=== PATIENT | female | born 1995 | race Caucasian/White ===

== ENCOUNTER 2019-05-18 21:29 | Emergency (ER) | payer OTHER ==
[2019-05-18 21:35] VITALS: BMI 32.8
--- NOTE | 2019-05-18 21:52 | PDOC ---
History of Present Illness - General Chief Complaint: Nausea/Vomiting Stated Complaint: 7 W PREG/VOMITING/DIZZINESS Time Seen by Provider: 05/18/19 21:51 History Source: Patient Exam Limitations: No Limitations - History of Present Illness Initial Comments: 05/18/19 22:10 Jia Roman is a 24y 7wk pt presenting w nausea/ vomiting. Started nausea/vomiting 7d, only able to keep soft foods/fluids down. Did not take any meds. No other complications w . Has intermittent headaches, SOB since beginning of . Denies fever, headache, chest/AB pain, urinary/bowel movement changes, vaginal bleeding. Past History - Past Medical History Allergies/Adverse Reactions: Allergies Allergy/AdvReac Type Severity Reaction Status Date / Time No Known Drug Allergies Allergy Verified 05/18/19 21:32 shellfish derived Allergy Swelling Verified 05/18/19 21:32 seafood Allergy Severe Swelling Uncoded 05/18/19 21:32 Home Medications: Ambulatory Orders Ferrous Sulfate [Feosol] 325 mg PO DAILY 12/06/14 Mv-Mn/Iron/FA/Herbal/Digestive [ One Tablet] 1 tab PO DAILY 12/06/14 Acetaminophen [Tylenol .Regular Strength -] 650 mg PO Q3H PRN #0 tablet Benzocaine [Americaine 20% [place] -] 1 spray TP PRN PRN #1 spraybtl 12/08/14 Ferrous Sulfate [Feosol] 325 mg PO BIDWM #60 ud 12/08/14 Ibuprofen [Motrin -] 200 mg PO Q4H PRN #20 tablet 12/08/14 Vitamins (Sjr) - 1 tab PO DAILY #30 tablet 12/08/14 Witch Molly 50% (Tucks) [Tucks Pads -] 1 pad TP PRN PRN #1 pad 12/08/14 Anemia: Yes Asthma: No Cancer: No Cardiac Disorders: No COPD: No Diabetes: No HTN: No Seizures: No Thyroid Disease: No - Psycho Social/Smoking Cessation Hx Smoking Status: No Smoking History: Never smoked Have you smoked in the past 12 months: No Number of Cigarettes Smoked Daily: 0 Hx Alcohol Use: No Drug/Substance Use Hx: No Hx Substance Use Treatment: No Review of Systems - Review of Systems Able to Perform ROS?: Yes Constitutional: No: Chills, Fever HEENTM: No: Eye Pain, Nose Pain, Throat Pain, Mouth Pain Respiratory: No: Cough, Shortness of Breath Cardiac (ROS): No: Chest Pain, Palpitations, Syncope ABD/GI: Yes: Nausea, Vomiting. No: Abdominal Distended, Constipated, Diarrhea : No: Burning, Dysuria, Discharge, Flank Pain, Hematuria Musculoskeletal: No: Back Pain, Joint Pain, Muscle Pain Integumentary: No: Bruising, Flushing, Lesions Neurological: No: Seizure, Tingling, Tremors Psychiatric: No: Anxiety, Depression, Stressors Endocrine: No: Excessive Sweating, Flushing, Intolerance to Cold, Intolerance to Heat Hematologic/Lymphatic: No: Anemia, Blood Clots *Physical Exam - Vital Signs Last Vital Signs Temp Pulse Resp BP Pulse Ox 98.5 F 93 H 18 133/87 98 05/18/19 21:32 05/18/19 21:32 05/18/19 21:32 05/18/19 21:32 05/18/19 21:32 - Physical Exam General Appearance: Yes: Nourished, Appropriately Dressed. No: Apparent Distress HEENT: positive: EOMI, LAST, Normal Voice, Hearing Grossly Normal. negative: Scleral Icterus (R), Scleral Icterus (L), Nasal Congestion, Rhinorrhea Respiratory/Chest: positive: Lungs Clear, Normal Breath Sounds. negative: Chest Tender, Respiratory Distress Cardiovascular: positive: Regular Rhythm, S1, S2, Tachycardia. negative: Edema , Murmur Extremity: positive: Delayed Capillary Refill (3s) Integumentary: positive: Normal Color Neurologic: positive: Fully Oriented, Alert, Normal Response, Responsive. negative: Sensory Deficit, Confused, Disoriented ED Treatment Course - LABORATORY CBC & Chemistry Diagram: 05/18/19 22:20 05/18/19 22:20 Medical Decision Making - Medical Decision Making 05/18/19 22:13 CBC CMP Mg Phos Ua HCG 1L NS for dehydration, pyridoxine for nausea CBC, CMP normal, +HCG --- Jia Roman is a 24y 7wk pt presenting w nausea/ vomiting d/t hyperemesis gravidarium. Given 1L NS for dehydration, pyridoxine for nausea. No electrolyte imbalances, confirmed . D/c home after PO challenge, OBGYN f/u appointment tmrw. Discharge - Discharge Information Problems reviewed: Yes Clinical Impression/Diagnosis: Hyperemesis gravidarum Condition: Good Disposition: HOME - Admission No - Follow up/Referral - Patient Discharge Instructions Patient Printed Discharge Instructions: DI for Hyperemesis Gravidarum Additional Instructions: You were seen for vomiting. Your labs did not show anything concerning. You were given fluids and medication for your vomiting. Please see your obgyn doctor at tomorrow's appointment. Do not eat any foods that will aggravate your nausea. Come back to the ED if you are vomiting blood, unable to keep any fluids down, or lose consciousness. - Post Discharge Activity
[2019-05-18] MEDS ORDERED: SODIUM CHLORIDE 0.9% 500 ML INFUS.BAG IV ONE (22:07)
[2019-05-18] MEDS ORDERED: PYRIDOXINE HCL (B-6) 100 MG TABLET PO ONE (22:20)
[2019-05-18 22:32] LABS: BASO % 1.1 % (0-2.0); EOS % 1.5 % (0-4.5); HEMATOCRIT 36.8 % (32.4-45.2); HEMOGLOBIN 12.3 GM/dL (10.7-15.3); LYMPH % 29.5 % (8-40); MCH 29.8 pg (25.7-33.7); MCHC 33.6 g/dl (32.0-36.0); MEAN CELL VOLUME 88.8 fl (80-96); MEAN PLT VOLUME 8.3 fl (7.5-11.1); MONO % 7.4 % (3.8-10.2); NEUT % 60.5 % (42.8-82.8); PLATELET COUNT 268 K/MM3 (134-434); RBC 4.14 M/mm3 (3.60-5.2); RDW 13.4 % (11.6-15.6); WHITE BLOOD COUNT 8.1 K/mm3 (4.0-10.0)
--- NOTE | 2019-05-18 22:38 | PDOC ---
Attending Attestation - Resident Resident Name: EdwinJorge - ED Attending Attestation I have performed the following: I have examined & evaluated the patient, The case was reviewed & discussed with the resident, I agree w/resident's findings & plan, Exceptions are as noted - HPI HPI: 05/18/19 22:37 This 24 yo female presents with nausea an vomiting for 1 week. HPI she states she is 7 weeks and is receiving principal cloud architect care - Physicial Exam PE: 05/19/19 01:05 Well-nourished well-developed 24-year-old female presents because she said persistent nausea and vomiting this week Head normocephalic atraumatic Neck supple Lungs are clear to auscultation bilaterally CVS regular rate and rhythm S1-S2 Abdomen nontender nondistended Skin warm and dry Neuro alert and oriented x3 and ambulatory - Medical Decision Making 05/18/19 22:39 24 yo female p/w hyperemesis plan Iv fluids 05/19/19 01:06 labs are essentially unremarkable pt has an appt with her principal cloud architect at [address] this week
[2019-05-18 22:56] LABS: PHOSPHOROUS 3.8 mg/dL (2.5-4.9)
[2019-05-18 23:29] LABS: ALBUMIN 3.9 g/dl (3.4-5.0); BILIRUBIN,TOTAL 0.2 mg/dL (0.2-1); BLOOD UREA NITROGEN 11.1 mg/dL (7-18); CALCIUM 8.9 mg/dL (8.5-10.1); CREATININE 0.6 mg/dL (0.55-1.3); POTASSIUM 4.1 mmol/L (3.5-5.1); TOT PROT 7.1 g/dl (6.4-8.2)
[2019-05-19 00:42] VITALS: BP 119/78; PULSE 86; TEMP 98.3
[2019-05-19 01:18] LABS: EPI CELLS 2.9 /HPF (0-5/HPF); HYALINE CASTS 1 /lpf (0-8); URINE APPEARANCE CLEAR; URINE BACTERIA 151.6 /hpf (NEGATIVE); URINE BILIRUBIN NEGATIVE (NEGATIVE); URINE COLOR YELLOW; URINE GLUCOSE (UA) NEGATIVE (NEGATIVE); URINE KETONE NEGATIVE (NEGATIVE); URINE LEUK ESTERASE 1+ (NEGATIVE); URINE NITRITE NEGATIVE (NEGATIVE); URINE PROTEIN NEGATIVE (NEGATIVE); URINE RBC 2 /hpf (0-4); URINE UROBILINOGEN 0.2 mg/dL (0.2-1.0); URINE WBC 4 /hpf (0-5)
== END 2019-05-19 01:21 | disposition home or self-care (01) ==
LOC: JER 21:29
DX: O26.891 Other specified pregnancy related conditions, first trimester (principal); O21.0 Mild hyperemesis gravidarum; Z3A.01 Less than 8 weeks gestation of pregnancy; D64.9 Anemia, unspecified; Z91.013 Allergy to seafood
CPT/HCPCS: 36415; 80053; 81003; 83735; 84100; 84703; 85025; 99283-25

== ENCOUNTER 2020-03-02 23:12 | Emergency (ER) | payer OTHER ==
[2020-03-02] MEDS ORDERED: FAMOTIDINE 20 MG/50 ML IVPB 20 MG/50 ML MG IVPB ONE ×2 (23:19→23:53)
--- NOTE | 2020-03-02 23:19 | PDOC ---
Rapid Medical Evaluation Chief Complaint: Pain Time Seen by Provider: 03/02/20 23:15 Medical Evaluation: Allergies Allergy/AdvReac Type Severity Reaction Status Date / Time No Known Drug Allergies Allergy Verified 01/08/20 01:53 shellfish derived Allergy Swelling Verified 01/08/20 01:53 seafood Allergy Severe Swelling Uncoded 01/08/20 01:53 03/02/20 23:15 24 year old female c/o epigastric abdominal pain one episode of vomiting today. had a baby 1 month ago. Last Vital Signs Temp Pulse Resp BP Pulse Ox 97.9 F 87 20 124/87 97 03/02/20 23:16 03/02/20 23:16 03/02/20 23:16 03/02/20 23:16 03/02/20 23:16 PE: patient alert ox3. A; epigastric abdominal pain P: labs abdominal US 03/02/20 23:20 Discharge Disposition - Diagnosis Epigastric abdominal pain - Referrals - Patient Instructions - Post Discharge Activity
[2020-03-02 23:20] VITALS: BMI 33.6
--- NOTE | 2020-03-02 23:20 | PDOC ---
History of Present Illness - General Chief Complaint: Pain Stated Complaint: G.I.UPSET Time Seen by Provider: 03/02/20 23:15 History Source: Patient - History of Present Illness Initial Comments: 03/02/20 23:46 24-year-old female complaining of epigastric and upper upper abdominal pain for the last 3 hours. Patient reports that she ate tuna fish sandwich earlier. Report one episode of vomiting. Denies fever/chills. Patient reports that she had a baby 1 month ago. No past medical history Past History - Medical History Allergies/Adverse Reactions: Allergies Allergy/AdvReac Type Severity Reaction Status Date / Time No Known Drug Allergies Allergy Verified 01/08/20 01:53 shellfish derived Allergy Swelling Verified 01/08/20 01:53 seafood Allergy Severe Swelling Uncoded 01/08/20 01:53 Home Medications: Ambulatory Orders Vitamins (Sjr) - 1 tab PO DAILY #30 tablet 12/08/14 Breast Pump 1 each MC 5XD 30 Days #1 each 01/10/20 Ferrous Sulfate [Feosol] 325 mg PO DAILY #30 tablet 01/10/20 Ibuprofen 600 mg PO Q6H PRN #30 tablet 01/10/20 Cephalexin Monohydrate [Keflex -] 500 mg PO BID #10 capsule 03/03/20 Famotidine [Pepcid -] 40 mg PO DAILY #10 tablet 03/03/20 Anemia: Yes Asthma: No Cancer: No Cardiac Disorders: No COPD: No Diabetes: No HTN: No Seizures: No Thyroid Disease: No - Immunization History Immunization Up to Date: No - Psycho-Social/Smoking History Smoking Status: No Smoking History: Never smoked Have you smoked in the past 12 months: No Number of Cigarettes Smoked Daily: 0 - Substance Abuse Hx (Audit-C & DAST Scrn) How often the patient has a drink containing alcohol: Never Score: In Men: 4 or > Positive; In Women: 3 or > Positive: 0 Screen Result (Pos requires Nsg. Audit-10AR): Negative Abd/GI Specific PMHX - Complaint Specific PMHX GI Ulcer Disease: No Review of Systems - Review of Systems Able to Perform ROS?: Yes Is the patient limited Croatian proficient: No Constitutional: No: Symptoms Reported, See HPI, Chills, Diaphoresis, Fever, Loss of Appetite, Malaise, Night Sweats, Weakness, Weight Stable, Unintentional Wgt. Loss, Unexplained wgt Loss, Other ABD/GI: Yes: Nausea, Vomiting, Abdominal cramping. No: Symptoms Reported, See HPI, Abdominal Distended, Abd. Pain w/ defecation, Blood Streaked Bowels, Constipated, Diarrhea, Difficulty Swallowing, Poor Appetite, Poor Fluid Intake, Rectal Bleeding, Indigestion, Tarry Stools, Other : No: Symptoms Reported, See HPI, Burning, Dysuria, Discharge, Frequency, Flank Pain, Hematuria, Incontinence, Pain, Urgency, Testicular Mass, Testicular Swelling, Lesions, Testicular Pain, Other *Physical Exam - Vital Signs Last Vital Signs Temp Pulse Resp BP Pulse Ox 97.9 F 87 20 124/87 97 03/02/20 23:16 03/02/20 23:16 03/02/20 23:16 03/02/20 23:16 03/02/20 23:16 - Physical Exam General Appearance: Yes: Appropriately Dressed Cardiovascular: positive: Regular Rhythm, Regular Rate Gastrointestinal/Abdominal: positive: Normal Bowel Sounds, Tender (RUQ/ epigastric) Musculoskeletal: negative: CVA Tenderness Extremity: positive: Normal Capillary Refill, Normal Inspection, Normal Range of Motion Integumentary: positive: Normal Color, Dry, Warm Neurologic: positive: resistance brazer II-XII NML intact, Fully Oriented, Alert ED Treatment Course - LABORATORY CBC & Chemistry Diagram: 03/03/20 00:10 03/03/20 00:10 - RADIOLOGY Radiology Studies Ordered: Category Date Time Status ABDOMEN US -LIMITED [US] Stat Ultrasound 03/02/20 23:18 Ordered ED Progress Note - Progress Note Progress Note: 03/03/20 02:56 A: cholelithiases; UTI; epigastric abdominal pain P: CBC CMP UA ABd US Medical Decision Making - Medical Decision Making 03/03/20 01:48 Abd US: Right upper quadrant pain:The liver is normal, without mass or biliary duct dilation. The gallbladder contains tiny stones without definite secondary findings of cholecystitis. The CBD is mildly dilated and measures7 millimeters in diameter. Right kidney measures 9.7centimeters in length and contains a 6 mm stone without hydronephrosis.. The visualized aorta and IVC are normal. Pancreas is partially obscured, but appears normal. Abdominal duplex: The main portal vein demonstrates normal hepatopedal flow. IMPRESSION: Tiny gallstones without definite secondary findings of cholecystitis. 03/03/20 02:48 UA + 1 leuks, bacteria. will empirically treat . patient is aware Discharge - Discharge Information Problems reviewed: Yes Clinical Impression/Diagnosis: Epigastric abdominal pain Cholelithiasis Qualifiers: Cholelithiasis location: gallbladder Cholecystitis presence: without cholecystitis Biliary obstruction: without biliary obstruction Qualified Code(s): K80.20 - Calculus of gallbladder without cholecystitis without obstruction UTI (urinary tract infection) Qualifiers: Urinary tract infection type: acute cystitis Hematuria presence: without hematuria Qualified Code(s): N30.00 - Acute cystitis without hematuria Condition: Improved Disposition: HOME - Additional Discharge Information Prescriptions: Cephalexin Monohydrate [Keflex -] 500 mg PO BID #10 capsule Famotidine [Pepcid -] 40 mg PO DAILY #10 tablet - Follow up/Referral Referrals: Jemma Ballesteros MD [Primary Care Provider] - William Jo MD [Staff Physician] - Call tomorrow - Patient Discharge Instructions Patient Printed Discharge Instructions: Gallstones Additional Instructions: Avoid fatty foods. You may take Tylenol every 4-6 hours as needed for pain. You were given a prescription for Pepcid for acid reflux and gastritis. Follow-up with a manager culture. A referral was given to you. Return to the emergency room for any worsening symptoms - Post Discharge Activity Work/Back to School Note: Back to Work
[2020-03-02] MEDS ORDERED: ONDANSETRON 4 MG/2 ML VIAL IVPB ONE (23:47)
[2020-03-03 00:32] LABS: BASO % 0.2 % (0-2.0); EOS % 0.5 % (0-4.5); HEMATOCRIT 33.5 % (32.4-45.2); HEMOGLOBIN 10.9 GM/dL (10.7-15.3); LYMPH % 15.5 % (8-40); MCH 26.9 pg (25.7-33.7); MCHC 32.6 g/dl (32.0-36.0); MEAN CELL VOLUME 82.5 fl (80-96); MEAN PLT VOLUME 8.3 fl (7.5-11.1); MONO % 4.9 % (3.8-10.2); NEUT % 78.9 % (42.8-82.8); PLATELET COUNT 333 K/MM3 (134-434); RBC 4.06 M/mm3 (3.60-5.2); RDW 16.2 % (11.6-15.6); WHITE BLOOD COUNT 11.8 K/mm3 (4.0-10.0)
[2020-03-03 00:37] LABS: HCG,QUALITATIVE URINE Negative
[2020-03-03 00:45] LABS: EPI CELLS 33 /uL (0-25.1); HYALINE CASTS 1 /uL (0-3.1); PH,URINE 6.5 (5.0-8.0); URINE APPEARANCE CLEAR; URINE BACTERIA 407 /uL (0-1359); URINE BILIRUBIN NEGATIVE (NEGATIVE); URINE COLOR YELLOW; URINE GLUCOSE (UA) NEGATIVE (NEGATIVE); URINE KETONE NEGATIVE (NEGATIVE); URINE LEUK ESTERASE 1+ (NEGATIVE); URINE NITRITE NEGATIVE (NEGATIVE); URINE PROTEIN NEGATIVE (NEGATIVE); URINE RBC 634 /uL (0-23.9); URINE WBC 27 /uL (0-25.8)
[2020-03-03 00:58] LABS: ALBUMIN 3.6 g/dl (3.4-5.0); BILIRUBIN,TOTAL 0.4 mg/dL (0.2-1); BLOOD UREA NITROGEN 8.9 mg/dL (7-18); CALCIUM 9.5 mg/dL (8.5-10.1); CREATININE 0.8 mg/dL (0.55-1.3); POTASSIUM 4.5 mmol/L (3.5-5.1); TOT PROT 7.2 g/dl (6.4-8.2)
[2020-03-03] MEDS ORDERED: KETOROLAC TROMETHAMINE 30 MG/1 ML VIAL IVPUSH ONE (01:53)
[2020-03-03] MEDS ORDERED: KETOROLAC TROMETHAMINE 30 MG/1 ML VIAL ONE (01:54)
[2020-03-03 02:51] VITALS: BP 124/76; PULSE 82; TEMP 98.6
== END 2020-03-03 02:51 | disposition home or self-care (01) ==
LOC: JER 23:12
PROC: 3E033NZ Introduction of Analgesics, Hypnotics, Sedatives into Peripheral Vein, Percutaneous Approach (ICD-10-PCS; principal; 2020-03-02)
PROC: 3E033GC Introduction of Other Therapeutic Substance into Peripheral Vein, Percutaneous Approach (ICD-10-PCS; 2020-03-02)
DX: K80.20 Calculus of gallbladder without cholecystitis without obstruction (principal); N39.0 Urinary tract infection, site not specified; R10.13 Epigastric pain
CPT/HCPCS: 36415; 76705-TC; 80053; 81003; 83690; 84703; 85025; 99285-25

== ENCOUNTER 2020-03-19 23:38 | Inpatient (IN) | payer OTHER ==
[2020-03-20] MEDS ORDERED: SODIUM CHLORIDE 0.9% 500 ML INFUS.BAG IV ONE (00:26)
[2020-03-20] MEDS ORDERED: ACETAMINOPHEN 1000 MG/100 ML VIAL (NON FORMULARY) IVPB ONE (00:26)
--- NOTE | 2020-03-20 00:32 | PDOC ---
History of Present Illness - General Chief Complaint: Pain Stated Complaint: ABD PAIN Time Seen by Provider: 03/20/20 00:00 History Source: Patient Exam Limitations: No Limitations - History of Present Illness Initial Comments: 03/20/20 00:27 24F PMH gallstones dx on 03/02 presenting with RUQ / epigastric pain that is becoming more frequent, painful, and lasting longer. Pain today started 2-3 hours ago. radiates to back. describes pain as the same type as what she has been feeling for the past month. + nausea, no vomiting. no recent f/c. No cp/sob, urinary sx, diarrhea. LMP 2 days ago, currently on menses. NKDA. Past History - Medical History Allergies/Adverse Reactions: Allergies Allergy/AdvReac Type Severity Reaction Status Date / Time No Known Drug Allergies Allergy Verified 03/19/20 23:43 shellfish derived Allergy Swelling Verified 03/19/20 23:43 seafood Allergy Severe Swelling Uncoded 03/19/20 23:43 Home Medications: Ambulatory Orders NK [No Known Home Medication] 03/19/20 Anemia: Yes Asthma: No Cancer: No Cardiac Disorders: No COPD: No Diabetes: No HTN: No Seizures: No Thyroid Disease: No - Reproductive History Is Patient Now?: No - Immunization History Immunization Up to Date: No - Psycho-Social/Smoking History Smoking Status: No Smoking History: Never smoked Have you smoked in the past 12 months: No Number of Cigarettes Smoked Daily: 0 - Substance Abuse Hx (Audit-C & DAST Scrn) How often the patient has a drink containing alcohol: Never Score: In Men: 4 or > Positive; In Women: 3 or > Positive: 0 Screen Result (Pos requires Nsg. Audit-10AR): Negative Review of Systems - Review of Systems Comments:: 03/20/20 06:18 CONSTITUTIONAL: Denies F / C HEENT: Denies headache, lightheadedness, dizziness, changes in vision / hearing, diplopia, blurry vision, sore throat, rhinorrhea RESP: Denies SOB, cough, orthopnea, LUTHER CARD: Denies chest pain, palpitations GI: +RUQ pain, Nausea. Denies V / D, bloody stool, inability to tolerate PO : Denies dysuria, hematuria, frequency, abnormal vaginal discharge. NEURO: Denies numbness, tingling, weakness MSK: Denies back pain SKIN: Denies rashes *Physical Exam - Vital Signs Last Vital Signs Temp Pulse Resp BP Pulse Ox 98 F 90 18 128/85 97 03/19/20 23:39 03/19/20 23:39 03/19/20 23:39 03/19/20 23:39 03/19/20 23:39 - Physical Exam 03/20/20 06:19 GEN: Well appearing, NAD, occasional discomfort. AAOx3. HEENT: NC/AT, EOMI, PERRL. No facial asymmetry. Moist mucous membranes. Normal voice. Supple neck w/ FROM. CV: S1/S2, RRR, no m/r/g LUNG: CTAB, no wheezes, crackles, rales, rhonchi. GI: +RUQ TTP, +sharp sign. soft, nondistended, +BS, no guarding, no rebound. No masses. Neg CVAT b/l. MSK: 2+ distal pulses. No LE edema. No obvious deformities of all extremities. SKIN: Warm, dry, no rashes appreciated. PSYCH: Normal mood and affect. NEURO: Moving all extremities well. normal gait ED Treatment Course - LABORATORY CBC & Chemistry Diagram: 03/20/20 01:10 03/20/20 01:10 - RADIOLOGY Radiology Studies Ordered: Category Date Time Status ABDOMEN US -LIMITED [US] Stat Ultrasound 03/20/20 00:26 Ordered Medical Decision Making - Medical Decision Making 03/20/20 06:19 24F PMH gallstones dx 03/02 c/o worsening RUQ pain likely symptomatic tiffani., unlikely pancreatitis, will consider other biliary pathologies - cbc, cmp, lipase - ua, uc - pain ctrl, fluids - RUQ US 03/20/20 02:37 [facility] RUQ IMPRESSION: HISTORY: Right upper quadrant pain COMPARISON: None. FINDINGS: Right upper quadrant ultrasound: The liver is normal, without mass or biliary duct dilation. The gallbladder is distended and contains stones without secondary findings of cholecystitis. The CBD is mildly dilated and measures8 millimeters in diameter. Right kidney measures 10.4centimeters in length and contains a small nonobstructing stone in the lower pole. The visualized aorta and IVC are normal. Pancreas is partially obscured, but appears normal. Abdominal duplex: There is normal hepatopedal flow in the main portal vein. IMPRESSION: Gallstones without secondary evidence of cholecystitis. Mild CBD dilation is nonspecific but a distal nonvisualized CBD stone cannot be excluded. Small nonobstructing renal stone. THIS DOCUMENT HAS BEEN ELECTRONICALLY SIGNED Gustabo Quigley MD 03/20/2020 01:32 ESTER Hernandez. Please call [facility] Manager [phone] ([phone]) with questions. INTERPRETING RADIOLOGIST: Narinder Quigley MD Electronically Signed: Mar 20, 2020 01:33AM EDT surgery c/s admit 03/20/20 02:59 Dr Rivero aware 03/20/20 03:38 endorsed to hospitalist team for admission Discharge - Discharge Information Problems reviewed: Yes Clinical Impression/Diagnosis: Symptomatic cholelithiasis Condition: Stable - Admission Yes - Follow up/Referral - Patient Discharge Instructions - Post Discharge Activity
[2020-03-20] MEDS ORDERED: ACETAMINOPHEN INJECTION 100 ML IVPB ONE (00:34)
[2020-03-20 01:26] LABS: BASO % 0.5 % (0-2.0); EOS % 1.9 % (0-4.5); HEMATOCRIT 34.1 % (32.4-45.2); HEMOGLOBIN 11.1 GM/dL (10.7-15.3); MCH 27.1 pg (25.7-33.7); MCHC 32.6 g/dl (32.0-36.0); MEAN CELL VOLUME 83.2 fl (80-96); MEAN PLT VOLUME 8.5 fl (7.5-11.1); MONO % 5.9 % (3.8-10.2); NEUT % 61.7 % (42.8-82.8); PLATELET COUNT 269 K/MM3 (134-434); RBC 4.09 M/mm3 (3.60-5.2); RDW 15.9 % (11.6-15.6); WHITE BLOOD COUNT 8.3 K/mm3 (4.0-10.0)
[2020-03-20 01:51] LABS: ALBUMIN 3.8 g/dl (3.4-5.0); BILIRUBIN,TOTAL 0.3 mg/dL (0.2-1); BLOOD UREA NITROGEN 10.6 mg/dL (7-18); CALCIUM 9.2 mg/dL (8.5-10.1); CREATININE 0.9 mg/dL (0.55-1.3); POTASSIUM 4.4 mmol/L (3.5-5.1); TOT PROT 7.4 g/dl (6.4-8.2)
--- NOTE | 2020-03-20 02:35 | PDOC ---
Documentation entered by Abisai Lundberg SCRIBE, acting as scribe for Maximilian Billy MD. Maximilian Billy MD: This documentation has been prepared by the curtis, Abisai Lundberg SCRIBE, under my direction and personally reviewed by me in its entirety. I confirm that the documentation accurately reflects all work, treatment, procedures, and medical decision making performed by me. Attending Attestation - Resident Resident Name: Tom Churchill - ED Attending Attestation I have performed the following: I have examined & evaluated the patient, The case was reviewed & discussed with the resident, I agree w/resident's findings & plan, Exceptions are as noted - HPI HPI: 03/20/20 00:37 The patient is a 24 year old female with a significant past medical history of anemia, who delivered her first child in January who presents to the emergency department for evaluation of right upper quadrant and epigastric pain which radiates to her right back that began 3 hours ago. She presented to the ED 03/02/20 for abdominal pain and vomiting and was found to have Cholelithiasis. The patient denies chest pain, cough, and shortness of breath. Denies fever, chills, vomiting, and/or any GI symptoms. Denies any symptoms. Denies any o ther symptoms. Allergies: shellfish Social Hx: PCP: Dr. Ballesteros - Physicial Exam PE: 03/20/20 00:13 See resident exam - Medical Decision Making 03/20/20 02:36 24 F with RUQ pain. Likely biliary colic 2/2 known gallstones. Will obtain US to r/o cholecystitis. - Labs - RUQ sono - Pain control Discharge - Discharge Information Problems reviewed: Yes Clinical Impression/Diagnosis: Symptomatic cholelithiasis, Epigastric pain, Right upper quadrant abdominal pain Condition: Good - Follow up/Referral - Patient Discharge Instructions - Post Discharge Activity
[2020-03-20] MEDS ORDERED: morphine CARPU-JECT 2 MG/1 ML DISP.SYRIN IVPUSH ONE (02:38)
[2020-03-20] MEDS ORDERED: MORPHINE SULFATE 2 MG/ML VIAL ONE (02:44)
[2020-03-20 03:09] LABS: EPI CELLS 33 /uL (0-25.1); HYALINE CASTS 1 /uL (0-3.1); PH,URINE 6.5 (5.0-8.0); URINE APPEARANCE CLEAR; URINE BACTERIA 181 /uL (0-1359); URINE BILIRUBIN NEGATIVE (NEGATIVE); URINE COLOR YELLOW; URINE GLUCOSE (UA) NEGATIVE (NEGATIVE); URINE KETONE NEGATIVE (NEGATIVE); URINE LEUK ESTERASE NEGATIVE (NEGATIVE); URINE NITRITE NEGATIVE (NEGATIVE); URINE PROTEIN NEGATIVE (NEGATIVE); URINE RBC 261 /uL (0-23.9); URINE WBC 17 /uL (0-25.8)
--- NOTE | 2020-03-20 03:14 | PN ---
Teaching Attending Note Name of Resident: Angélica Priest ATTENDING PHYSICIAN STATEMENT I saw and evaluated the patient. I reviewed the resident's note and discussed the case with the resident. I agree with the resident's findings and plan as documented. SUBJECTIVE: Patient is a 24 year old woman with a PMH of Gallstones, Kidney stone, Anemia and Recent child (January 2020) presenting with RUQ/epigastric pain that is becoming more frequent, painful, and lasting longer. Pain today started 2-3 hours prior to arrival, and radiates to the back with associated nausea. Describes pain as the same type as what she has been feeling for the past month. She presented to the ED 03/02/20 for abdominal pain and vomiting and was found to have Cholelithiasis. Currently on her menses that started 2 days ago. Tested negative for COVID-19 on 01/09/2020. 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 Lives with her mother and her two children. Patient denies shortness of breath, headache, palpitations, dizziness, fever, chills, vomiting, diarrhea, constipation, dysuria, frequency, urgency, melena, hematochezia or hematuria. Denies alcohol, tobacco or illicit drug use. No sick contacts or recent travels. Family history of uterine cancer in mother. OBJECTIVE: Alert Vital Signs Period Temp Pulse Resp BP Sys/Shay Pulse Ox Last 24 Hr 98 F 90 18 128/85 97 HEENT: No Jaundice, eye redness or discharge, PERRLA, EOMI. Normocephalic, atraumatic. External ears are normal and hearing is grossly intact. No nasal discharge. Neck: Supple, nontender. No palpable adenopathy or thyromegaly. No JVD Chest: Good effort. Clear to auscultation and percussion. Heart: Regular. No S3, rub or murmur Abdomen: Not distended, soft, RUQ tenderness and no HSM. No rebound or guarding. Normal bowel sounds. Ext: Peripheral pulses intact. No leg edema. Skin: Warm and dry. No petechiae, rash or ecchymosis. Neuro: Alert. Oriented x3. CN 2-12 grossly intact. Sensation grossly intact in all four extremities and DTR are symmetric. Psych: Appropriate mood and affect. Good insight. Home Medications Medication Instructions Recorded NK [No Known Home Medication] 03/19/20 Abnormal Lab Results 03/20/20 03/20/20 03/20/20 01:10 01:10 01:17 RDW 15.9 H Anion Gap 5 L AST 67 H Urine Blood 3+ H Current Medications Generic Name Dose Route Start Last Admin Trade Name Shalini PRN Reason Stop Dose Admin Acetaminophen 650 mg 03/20/20 06:16 Tylenol - PO Q4H PRN PAIN LEVEL 6-10 Lactated Ringer's 1,000 mls @ 75 mls/hr 03/20/20 06:30 Lactated Ringers Solution IV ASDIR MANUELA Morphine Sulfate 1 mg 03/20/20 06:16 Morphine Injection - IVPUSH Q4H PRN PAIN LEVEL 6-10 ASSESSMENT AND PLAN: 1. Abdominal pain/Cholelithiasis - Abdominal ultrasound shows - "Gallstones without secondary evidence of cholecystitis. Mild CBD dilation is nonspecific but a distal nonvisualized CBD stone cannot be excluded. Small nonobstructing renal stone." Will use Tylenol and IV Morphine for pain control; IV Zofran PRN after EKG and continue IV LR. Will keep her NPO, get MRCP and consult GI. EKG shows NSR at 70/minute and QTc [address]-T wave changes. Initial troponin is negative. Viral testing for COVID-19 ordered and patient placed on airborne, droplet and contact isolation. 2. Obesity Counseled on the risks associated with obesity. Will provide patient all the necessary assistance, counseling and positive reinforcement to facilitate weight loss. Consult vacuum kettle cook. 3. DVT prophylaxis - SCD. 4. Advance directives - Full code
[2020-03-20 05:15] VITALS: BMI 35.0
[2020-03-20] MEDS ORDERED: MORPHINE SULFATE 2 MG/ML VIAL IVPUSH PRN (06:16)
[2020-03-20] MEDS ORDERED: ACETAMINOPHEN 325 MG TABLET (FP) PO PRN (06:16)
--- NOTE | 2020-03-20 06:38 | HP ---
CHIEF COMPLAINT: severe epigastric pain PCP: Favian HISTORY OF PRESENT ILLNESS: 24yo G?P2 F with no significant PMHx who presented with nausea and severe mid- epigastric and R epigastric pain, rated 10/10. Started this evening around 10:30pm, escalated quickly, which prompted her to come to the ED. She has had these pains before, previously with vomiting, twice towards the end of her recent (natural delivery in January 2020) and three times since delivering her baby. She describes the pain as sharp and throbbing. Endorses cold sweats from the pain and nausea but denied any other associated symptoms including VD, headaches, dizziness, CP, SOB. Came to the ED recently on 03/02/20 for abdominal pain and vomiting and was found to have cholelithiasis. ER course was notable for: (1) AST 67 (2) UA 3+ blood, RBC 261 (3) US limited - read pending (4) got 1L NS, 1g ofirmev, 2mg morphine Recent Travel: did not assess PAST MEDICAL HISTORY: none PAST SURGICAL HISTORY: none Social History: Smoking: denied Alcohol: socially Drugs: denied Job: [employer] associate Home: lives with mother and two kids Allergies tongue swelling, vomiting, and itching with shellfish HOME MEDICATIONS: Home Medications Medication Instructions Recorded NK [No Known Home Medication] 03/19/20 REVIEW OF SYSTEMS As stated above PHYSICAL EXAMINATION Vital Signs - 24 hr 03/19/20 03/20/20 23:39 05:15 Temperature 98 F 97.6 F Pulse Rate 90 72 Respiratory 18 18 Rate Blood Pressure 128/85 125/78 O2 Sat by Pulse 97 100 Oximetry (%) GENERAL: female, appears stated age, overweight, AAOx3, in mild distress due to pain HEAD: Normal with no signs of trauma EYES: PERRL, direct and consensual pupillary reflex intact, extraocular movements intact NECK: no lymphadenopathy noted LUNGS: CTAB, no wheezing HEART: RRR, clear S1 S2 ABDOMEN: Soft, distended, tender to palpation in epigastrium and RUQ, mildly tender in RLQ but no tenderness on the L EXTREMITIES: radial and dorsalis pedis pulses easily palpated, no edema noted NEUROLOGICAL: Cranial nerves II-XII grossly intact. Normal speech PSYCHIATRIC: Cooperative. Good eye contact. Appropriate mood and affect SKIN: Warm to touch, tatoo on L forearm and R wrist, no other rashes or lesions noted Laboratory Results - last 24 hr 03/20/20 03/20/20 03/20/20 01:10 01:10 01:10 WBC 8.3 RBC 4.09 Hgb 11.1 Hct 34.1 MCV 83.2 MCH 27.1 MCHC 32.6 RDW 15.9 H Plt Count 269 MPV 8.5 Absolute Neuts (auto) 5.1 Neutrophils % 61.7 D Lymphocytes % 30.0 D Monocytes % 5.9 Eosinophils % 1.9 D Basophils % 0.5 Nucleated RBC % 0 Sodium 139 Potassium 4.4 Chloride 106 Carbon Dioxide 28 Anion Gap 5 L BUN 10.6 Creatinine 0.9 Est GFR (CKD-EPI)AfAm 103.00 Est GFR (CKD-EPI)NonAf 88.87 Random Glucose 87 Calcium 9.2 Total Bilirubin 0.3 AST 67 H ALT 46 Alkaline Phosphatase 95 Total Protein 7.4 Albumin 3.8 Lipase 138 Serum , Qual Negative Urine Color Urine Appearance Urine pH Ur Specific [place] Urine Protein Urine Glucose (UA) Urine Ketones Urine Blood Urine Nitrite Urine Bilirubin Urine Urobilinogen Ur Leukocyte Esterase Urine WBC (Auto) Urine RBC (Auto) Urine Casts (Auto) U Epithel Cells (Auto) Urine Bacteria (Auto) 03/20/20 01:17 WBC RBC Hgb Hct MCV MCH MCHC RDW Plt Count MPV Absolute Neuts (auto) Neutrophils % Lymphocytes % Monocytes % Eosinophils % Basophils % Nucleated RBC % Sodium Potassium Chloride Carbon Dioxide Anion Gap BUN Creatinine Est GFR (CKD-EPI)AfAm Est GFR (CKD-EPI)NonAf Random Glucose Calcium Total Bilirubin AST ALT Alkaline Phosphatase Total Protein Albumin Lipase Serum , Qual Urine Color Yellow Urine Appearance Clear Urine pH 6.5 Ur Specific [place] 1.017 Urine Protein Negative Urine Glucose (UA) Negative Urine Ketones Negative Urine Blood 3+ H Urine Nitrite Negative Urine Bilirubin Negative Urine Urobilinogen 1.0 Ur Leukocyte Esterase Negative Urine WBC (Auto) 17 Urine RBC (Auto) 261 Urine Casts (Auto) 1 U Epithel Cells (Auto) 33 Urine Bacteria (Auto) 181 ASSESSMENT/PLAN: 24yo G?P2 F with no significant PMHx who presented with nausea and sever midepigastric and R epigastric pain and admitted for further w/o of likely cholelithiasis. #Cholelithiasis - NPO in prep for surgery - surgery will reassess in am - PT / INR - Type & Screen - CXR - tylenol PO and morphine for pain - GI consult for possible MRCP #FEN - no standing fluids - replete lytes PRN - NPO #PPX - DVT: SCDs #Dispo: continue monitoring on medSurg Family Medical History Family History: As Documented Visit type - Emergency Visit Emergency Visit: Yes ED Registration Date: 03/20/20 Care time: The patient presented to the Emergency Department on the above date and was hospitalized for further evaluation of their emergent condition. - New Patient This patient is new to me today: Yes Date on this admission: 03/21/20 - Critical Care Critical Care patient: No ATTENDING PHYSICIAN STATEMENT I saw and evaluated the patient. I reviewed the resident's note and discussed the case with the resident. I agree with the resident's findings and plan as documented. SUBJECTIVE: OBJECTIVE: ASSESSMENT AND PLAN:
[2020-03-20] MEDS: LACTATED RINGERS SOLUTION 1,000 ML IV SCH ×2 (07:03→20:43)
[2020-03-20 09:21] LABS: INR 0.89 (0.83-1.09); PROTHROMBIN TIME (PATIENT) 10.5 SEC (9.7-13.0)
--- NOTE | 2020-03-20 10:13 | CONSULT ---
- Consultation REQUESTING PROVIDER: CONSULT REQUEST: We have been asked to surgically evaluate this patient for symptomatic recurrent biliary colic. PCP:Kofi Armstrong MD HISTORY OF PRESENT ILLNESS: PMHx: none PSHx: none Home Medications Medication Instructions Recorded NK [No Known Home Medication] 03/19/20 Allergies Allergy/AdvReac Type Severity Reaction Status Date / Time No Known Drug Allergies Allergy Verified 03/19/20 23:43 shellfish derived Allergy Swelling Verified 03/19/20 23:43 seafood Allergy Severe Swelling Uncoded 03/19/20 23:43 REVIEW OF SYSTEMS: CONSTITUTIONAL: Absent: fever, chills, diaphoresis, generalized weakness, malaise, loss of appetite, weight change CARDIOVASCULAR: Absent: chest pain, syncope, palpitations, irregular heart rate, lightheadedness, peripheral edema RESPIRATORY: Absent: cough, shortness of breath, dyspnea with exertion, wheezing, stridor, hemoptysis GASTROINTESTINAL: Present: abdominal pain, abdominal distension, nausea, vomiting, Absent: diarrhea, constipation, melena, hematochezia GENITOURINARY: Absent: dysuria, frequency, urgency, hesitancy, hematuria, flank pain, genital pain MUSCULOSKELETAL: Absent: myalgia, arthralgia, joint swelling, back pain, neck pain SKIN: Absent: rash, itching, pallor HEMATOLOGIC/IMMUNOLOGIC: Absent: easy bleeding, easy bruising, lymphadenopathy NEUROLOGIC: Absent: headache, focal weakness, paresthesias, dizziness, unsteady gait, seizure, mental status changes, bladder or bowel incontinence PSYCHIATRIC: Absent: anxiety, depression, suicidal or homicidal ideation, hallucinations. PHYSICAL EXAM: GENERAL: Awake, alert, and fully oriented, in no acute distress. HEAD: Normal with no signs of trauma. EYES: PERRL, sclera anicteric, conjunctiva clear. NECK: Normal ROM, supple without lymphadenopathy, JVD, or masses. ABDOMEN: Soft, nontender, not distended, normoactive bowel sounds, no guarding, no rebound, no masses. No organomegaly. No hernias; post gravid. MUSCULOSKELETAL: Normal ROM at all joints. No bony deformities or tenderness. No CVA tenderness. UPPER EXTREMITIES: 2+ pulses, warm, well-perfused. No cyanosis. Cap refill <2 seconds. No peripheral edema. LOWER EXTREMITIES: 2+ pulses, warm, well-perfused. No calf tenderness. No peripheral edema. NEUROLOGICAL: Normal speech, gait not observed. PSYCH: Cooperative. Good eye contact. Appropriate mood and affect. SKIN: Warm, dry, normal turgor, no rashes or lesions noted. Vital Signs Temperature 98.5 F 03/20/20 08:49 Pulse Rate 76 03/20/20 08:49 Respiratory Rate 18 03/20/20 08:49 Blood Pressure 121/78 03/20/20 08:49 O2 Sat by Pulse Oximetry (%) 98 03/20/20 08:49 Lab Results WBC 8.3 K/mm3 (4.0-10.0) 03/20/20 01:10 RBC 4.09 M/mm3 (3.60-5.2) 03/20/20 01:10 Hgb 11.1 GM/dL (10.7-15.3) 03/20/20 01:10 Hct 34.1 % (32.4-45.2) 03/20/20 01:10 MCV 83.2 fl (80-96) 03/20/20 01:10 MCHC 32.6 g/dl (32.0-36.0) 03/20/20 01:10 RDW 15.9 % (11.6-15.6) H 03/20/20 01:10 Plt Count 269 K/MM3 (134-434) 03/20/20 01:10 INR 0.89 (0.83-1.09) 03/20/20 08:29 Sodium 139 mmol/L (136-145) 03/20/20 01:10 Potassium 4.4 mmol/L (3.5-5.1) 03/20/20 01:10 Chloride 106 mmol/L (98-107) 03/20/20 01:10 Carbon Dioxide 28 mmol/L (21-32) 03/20/20 01:10 Anion Gap 5 MMOL/L (8-16) L 03/20/20 01:10 BUN 10.6 mg/dL (7-18) 03/20/20 01:10 Creatinine 0.9 mg/dL (0.55-1.3) 03/20/20 01:10 Random Glucose 87 mg/dL (74-106) 03/20/20 01:10 Calcium 9.2 mg/dL (8.5-10.1) 03/20/20 01:10 US reviewed IMP:recurrent biliary colic; cholelithiasis and possible choledocholithiasis PLAN: NPO/IVF/MRCP and lap tiffani possible open 03/22/2020. Maximilian Rivero MD FACS
--- NOTE | 2020-03-20 11:30 | CON.GI ---
Consult Consult Specialty:: GI Referred by:: Hospitalist service Reason for Consultation:: cholecystitis, possible cholelithiasis - History of Present Illness Chief Complaint: Epigastric and RUQ pain History of Present Illness: 24 y.o. obese F developed severe epigastric pain about 10:30 pm last night. Has had this pain before but it was fleeting, this time it did not get better and prompted her to go to ER where a sonogram showed cholelithiasis and a slightly dilated common bile duct. Bilirubin and alk phos were normal, AST and ALT were slightly elevated: CBC,CMP WBC 8.3 K/mm3 (4.0-10.0) 03/20/20 01:10 RBC 4.09 M/mm3 (3.60-5.2) 03/20/20 01:10 Hgb 11.1 GM/dL (10.7-15.3) 03/20/20 01:10 Hct 34.1 % (32.4-45.2) 03/20/20 01:10 MCV 83.2 fl (80-96) 03/20/20 01:10 MCH 27.1 pg (25.7-33.7) 03/20/20 01:10 MCHC 32.6 g/dl (32.0-36.0) 03/20/20 01:10 RDW 15.9 % (11.6-15.6) H 03/20/20 01:10 Plt Count 269 K/MM3 (134-434) 03/20/20 01:10 MPV 8.5 fl (7.5-11.1) 03/20/20 01:10 Absolute Neuts (auto) 5.1 K/mm3 (1.5-8.0) 03/20/20 01:10 Neutrophils % 61.7 % (42.8-82.8) D 03/20/20 01:10 Lymphocytes % 30.0 % (8-40) D 03/20/20 01:10 Monocytes % 5.9 % (3.8-10.2) 03/20/20 01:10 Eosinophils % 1.9 % (0-4.5) D 03/20/20 01:10 Basophils % 0.5 % (0-2.0) 03/20/20 01:10 Nucleated RBC % 0 % (0-0) 03/20/20 01:10 Sodium 139 mmol/L (136-145) 03/20/20 01:10 Potassium 4.4 mmol/L (3.5-5.1) 03/20/20 01:10 Chloride 106 mmol/L (98-107) 03/20/20 01:10 Carbon Dioxide 28 mmol/L (21-32) 03/20/20 01:10 Anion Gap 5 MMOL/L (8-16) L 03/20/20 01:10 BUN 10.6 mg/dL (7-18) 03/20/20 01:10 Creatinine 0.9 mg/dL (0.55-1.3) 03/20/20 01:10 Est GFR (CKD-EPI)AfAm 103.00 03/20/20 01:10 Est GFR (CKD-EPI)NonAf 88.87 03/20/20 01:10 Random Glucose 87 mg/dL (74-106) 03/20/20 01:10 Calcium 9.2 mg/dL (8.5-10.1) 03/20/20 01:10 Total Bilirubin 0.3 mg/dL (0.2-1) 03/20/20 01:10 AST 67 U/L (15-37) H 03/20/20 01:10 ALT 46 U/L (13-61) 03/20/20 01:10 Alkaline Phosphatase 95 U/L (45-117) 03/20/20 01:10 Total Protein 7.4 g/dl (6.4-8.2) 03/20/20 01:10 Albumin 3.8 g/dl (3.4-5.0) 03/20/20 01:10 Lipase 138 U/L (73-393) 03/20/20 01:10 Serum , Qual Negative 03/20/20 01:10 - History Source History Provided By: Patient, Medical Record Limitations to Obtaining History: No Limitations - Past Medical History ...LMP: 03/17/20 ...: No - Alcohol/Substance Use Hx Alcohol Use: No - Smoking History Smoking history: Never smoked Have you smoked in the past 12 months: No Aproximately how many cigarettes per day: 0 - Social History History of Recent Travel: No Home Medications - Allergies Allergies/Adverse Reactions: Allergies Allergy/AdvReac Type Severity Reaction Status Date / Time No Known Drug Allergies Allergy Verified 03/19/20 23:43 shellfish derived Allergy Swelling Verified 03/19/20 23:43 seafood Allergy Severe Swelling Uncoded 03/19/20 23:43 - Home Medications Home Medications: Ambulatory Orders NK [No Known Home Medication] 03/19/20 Physical Exam-GI Vital Signs: Vital Signs Temperature 98.5 F 03/20/20 08:49 Pulse Rate 76 03/20/20 08:49 Respiratory Rate 18 03/20/20 08:49 Blood Pressure 121/78 03/20/20 08:49 O2 Sat by Pulse Oximetry (%) 98 03/20/20 08:49 Constitutional: Yes: Obese Eyes: Yes: WNL HENT: Yes: WNL ...Palpate: Yes: Soft Labs: CBC, BMP 03/20/20 01:10 03/20/20 01:10 INR, PTT INR 0.89 (0.83-1.09) 03/20/20 08:29 Imaging - Results Chest X-ray: Report Reviewed, Image Reviewed Ultrasound: Report Reviewed, Image Reviewed Problem List - Problems (1) Cholelithiasis Code(s): K80.20 - CALCULUS OF GALLBLADDER W/O CHOLECYSTITIS W/O OBSTRUCTION Qualifiers: Cholelithiasis location: gallbladder Cholecystitis presence: without cholecystitis Biliary obstruction: without biliary obstruction Qualified Code(s): K80.20 - Calculus of gallbladder without cholecystitis without obstruction (2) Epigastric pain Code(s): R10.13 - EPIGASTRIC PAIN Assessment/Plan Cholecystitis/biliary colic. The CBD measured 0.66 cm last month on ultrasound. On this ultrasound the automotive paint technician measured the diameter of the CBD on a slight tangent, which may account for the reading of an 8 mm diameter. I suspect the MRCP will not show any CBD stone, but if it does, then ERCP can be done on Sunday.
[2020-03-21 08:06] LABS: ALBUMIN 3.2 g/dl (3.4-5.0); BILIRUBIN,TOTAL 0.6 mg/dL (0.2-1); BLOOD UREA NITROGEN 6.7 mg/dL (7-18); CALCIUM 8.7 mg/dL (8.5-10.1); CREATININE 0.7 mg/dL (0.55-1.3); MAGNESIUM 1.9 mg/dL (1.8-2.4); POTASSIUM 4.2 mmol/L (3.5-5.1); TOT PROT 6.4 g/dl (6.4-8.2)
[2020-03-21 08:13] LABS: BASO % 0.4 % (0-2.0); EOS % 3.5 % (0-4.5); HEMATOCRIT 31.5 % (32.4-45.2); HEMOGLOBIN 10.4 GM/dL (10.7-15.3); LYMPH % 41.1 % (8-40); MCH 27.2 pg (25.7-33.7); MEAN CELL VOLUME 82.6 fl (80-96); MEAN PLT VOLUME 8.3 fl (7.5-11.1); MONO % 6.3 % (3.8-10.2); NEUT % 48.7 % (42.8-82.8); PLATELET COUNT 229 K/MM3 (134-434); RBC 3.82 M/mm3 (3.60-5.2); RDW 15.6 % (11.6-15.6); WHITE BLOOD COUNT 3.7 K/mm3 (4.0-10.0)
[2020-03-21] MEDS: LACTATED RINGERS SOLUTION 1,000 ML IV SCH ×2 (08:59→22:17)
--- NOTE | 2020-03-21 09:55 | PN ---
Progress Note (short form) - Note Progress Note: Pt reports feeling much improved, not taking pain meds. Says she thinks she is having "hunger pangs" and would like to try liquids at least. LFTs have risen since yesterday but bilirubrin normal: Hepatic Panel Total Bilirubin 0.6 mg/dL (0.2-1) 03/21/20 06:25 AST 264 U/L (15-37) H 03/21/20 06:25 ALT 311 U/L (13-61) H 03/21/20 06:25 Alkaline Phosphatase 190 U/L (45-117) H 03/21/20 06:25 Albumin 3.2 g/dl (3.4-5.0) L 03/21/20 06:25 WBC still low: CBC WBC 3.7 K/mm3 (4.0-10.0) L 03/21/20 06:25 RBC 3.82 M/mm3 (3.60-5.2) 03/21/20 06:25 Hgb 10.4 GM/dL (10.7-15.3) L 03/21/20 06:25 Hct 31.5 % (32.4-45.2) L 03/21/20 06:25 MCV 82.6 fl (80-96) 03/21/20 06:25 MCH 27.2 pg (25.7-33.7) 03/21/20 06:25 MCHC 33.0 g/dl (32.0-36.0) 03/21/20 06:25 RDW 15.6 % (11.6-15.6) 03/21/20 06:25 Plt Count 229 K/MM3 (134-434) 03/21/20 06:25 MPV 8.3 fl (7.5-11.1) 03/21/20 06:25 Absolute Neuts (auto) 1.8 K/mm3 (1.5-8.0) 03/21/20 06:25 Neutrophils % 48.7 % (42.8-82.8) D 03/21/20 06:25 Lymphocytes % 41.1 % (8-40) H D 03/21/20 06:25 Monocytes % 6.3 % (3.8-10.2) 03/21/20 06:25 Eosinophils % 3.5 % (0-4.5) D 03/21/20 06:25 Basophils % 0.4 % (0-2.0) 03/21/20 06:25 Nucleated RBC % 0 % (0-0) 03/21/20 06:25 Abdomen soft, nontender. I reviewed the MRCP and I don't see any dilation of the CBD or any definite stone in the CBD. Reading by radiologist is pending. I explained to Ms Princess Roman that she may need an ERCP before her surgery if the radiologist calls a stone. Will allow clear liquids today, make NPO for the a.m. for either cholecystectomy or ERCP. Problem List - Problems (1) Cholelithiasis Code(s): K80.20 - CALCULUS OF GALLBLADDER W/O CHOLECYSTITIS W/O OBSTRUCTION Qualifiers: Cholelithiasis location: gallbladder Cholecystitis presence: without cholecystitis Biliary obstruction: without biliary obstruction Qualified Code(s): K80.20 - Calculus of gallbladder without cholecystitis without obstruction (2) Epigastric pain Code(s): R10.13 - EPIGASTRIC PAIN
--- NOTE | 2020-03-21 18:10 | PN ---
Physical Exam: SUBJECTIVE: Patient seen and examined at bedside, awaiting MRCP results, will eventually need lap tiffani, no overnight events, spike in LFTs noted. VSS. OBJECTIVE: Vital Signs Period Temp Pulse Resp BP Sys/Shay Pulse Ox Last 24 Hr 97.8 F-98.3 F 53-69 18-18 115-124/69-87 98-100 GENERAL: The patient is awake, alert, and fully oriented, in no acute distress. HEAD: Normal with no signs of trauma. EYES: PERRL, extraocular movements intact, sclera anicteric, conjunctiva clear. No ptosis. ENT: Ears normal, nares patent, oropharynx clear without exudates, moist mucous membranes. NECK: Trachea midline, full range of motion, supple. LUNGS: Breath sounds equal, clear to auscultation bilaterally, no wheezes, no crackles, no accessory muscle use. HEART: Regular rate and rhythm, S1, S2 without murmur, rub or gallop. ABDOMEN: Obese, Soft, RUQ tenderness to deep palpation, no guarding, BS+ EXTREMITIES: 2+ pulses, warm, well-perfused, no edema. NEUROLOGICAL: Cranial nerves II through XII grossly intact. Normal speech, gait not observed. PSYCH: Normal mood, normal affect. SKIN: Warm, dry, normal turgor, no rashes or lesions noted Laboratory Results - last 24 hr 03/20/20 03/21/20 03/21/20 13:25 06:25 06:25 WBC 3.7 L RBC 3.82 Hgb 10.4 L Hct 31.5 L MCV 82.6 MCH 27.2 MCHC 33.0 RDW 15.6 Plt Count 229 MPV 8.3 Absolute Neuts (auto) 1.8 Neutrophils % 48.7 D Lymphocytes % 41.1 H D Monocytes % 6.3 Eosinophils % 3.5 D Basophils % 0.4 Nucleated RBC % 0 Sodium 140 Potassium 4.2 Chloride 107 Carbon Dioxide 26 Anion Gap 8 BUN 6.7 L Creatinine 0.7 Est GFR (CKD-EPI)AfAm 139.57 Est GFR (CKD-EPI)NonAf 120.42 Random Glucose 66 L Calcium 8.7 Phosphorus 3.0 Magnesium 1.9 Total Bilirubin 0.6 AST 264 H ALT 311 H Alkaline Phosphatase 190 H Total Protein 6.4 Albumin 3.2 L Hep A IgM Ab Confirm Negative Hep Bs Antigen Negative Hep B Core IgM Ab Negative Hepatitis C Ab (EIA) <0.1 Active Medications Generic Name Dose Route Start Last Admin Trade Name Freq PRN Reason Stop Dose Admin Lactated Ringer's 1,000 mls @ 125 mls/hr 03/21/20 09:31 Lactated Ringers Solution IV ASDIR MANUELA Morphine Sulfate 1 mg 03/20/20 06:16 03/20/20 08:45 Morphine Sulfate IVPUSH 1 mg Q4H PRN Administration PAIN LEVEL 6-10 ASSESSMENT/PLAN: 24 F r/o Choledocholithiasis Suspected cholecystitis Obesity Plan: Cont. liquid only diet per GI Monitor LFTs Awaiting read of MRCP Will need lap tiffani and possible ERCP afterwards DVT ppx: Heparin SC Visit type - Emergency Visit Emergency Visit: Yes ED Registration Date: 03/20/20 Care time: The patient presented to the Emergency Department on the above date and was hospitalized for further evaluation of their emergent condition. - New Patient This patient is new to me today: No - Critical Care Critical Care patient: No - Discharge Referral Referred to [facility] Med P.C.: No
--- NOTE | 2020-03-21 18:26 | EKG ---
Test Reason : Blood Pressure : / mmHG Vent. Rate : 070 BPM Atrial Rate : 070 BPM P-R Int : 146 ms QRS Dur : 080 ms QT Int : 396 ms P-R-T Axes : 040 027 032 degrees QTc Int : 427 ms NORMAL SINUS RHYTHM NORMAL ECG WHEN COMPARED WITH ECG OF 11-NOV-2019 12:12, NO SIGNIFICANT CHANGE WAS FOUND Confirmed by MD SNIDER MOYSES ([id number]) on 03/21/2020 6:25:57 PM Referred By: Confirmed By:CRISTY SNIDER MD
[2020-03-21] MEDS: HEPARIN NA (PORCINE) 5,000 UNITS/ML 1ML VIAL SQ SCH (21:06)
[2020-03-21] MEDS ORDERED: PANTOPRAZOLE SODIUM 40 MG VIAL IVPUSH ONE (23:04)
[2020-03-22] MEDS: HEPARIN NA (PORCINE) 5,000 UNITS/ML 1ML VIAL SQ SCH ×2 (06:22→16:51)
[2020-03-22] MEDS: LACTATED RINGERS SOLUTION 1,000 ML IV SCH ×3 (06:23→23:58)
[2020-03-22 08:26] LABS: BASO % 0.7 % (0-2.0); EOS % 3.4 % (0-4.5); HEMATOCRIT 31.7 % (32.4-45.2); HEMOGLOBIN 10.5 GM/dL (10.7-15.3); LYMPH % 52.5 % (8-40); MEAN CELL VOLUME 81.8 fl (80-96); MEAN PLT VOLUME 8.3 fl (7.5-11.1); MONO % 7.6 % (3.8-10.2); NEUT % 35.8 % (42.8-82.8); PLATELET COUNT 244 K/MM3 (134-434); RBC 3.88 M/mm3 (3.60-5.2); RDW 15.7 % (11.6-15.6); WHITE BLOOD COUNT 3.6 K/mm3 (4.0-10.0)
[2020-03-22 08:49] LABS: POTASSIUM 4.4 mmol/L (3.5-5.1)
[2020-03-22 08:56] LABS: ALBUMIN 3.2 g/dl (3.4-5.0); BILIRUBIN,DIRECT 0.1 mg/dL (0.0-0.2); BILIRUBIN,TOTAL 0.7 mg/dL (0.2-1); BLOOD UREA NITROGEN 6.1 mg/dL (7-18); CALCIUM 8.7 mg/dL (8.5-10.1); CREATININE 0.7 mg/dL (0.55-1.3); TOT PROT 6.2 g/dl (6.4-8.2)
--- NOTE | 2020-03-22 12:53 | PN.GI ---
GI Progress Note Subjective: No acute events Some heartburn - Objective Vital Signs: Vital Signs Temperature 98.0 F 03/22/20 10:00 Pulse Rate 59 L 03/22/20 10:00 Respiratory Rate 18 03/22/20 10:00 Blood Pressure 118/62 03/22/20 10:00 O2 Sat by Pulse Oximetry (%) 99 03/22/20 10:00 Constitutional: Calm Eyes: No: Sclera Icterus Cardiovascular: Yes: Regular Rate and Rhythm Respiratory: Yes: CTA Bilaterally Gastrointestinal Inspection: No: Distention ...Auscultate: Yes: Normoactive Bowel Sounds ...Palpate: No: Hepatomegaly, Soft, Splenomegaly, Tenderness ...Percussion: No: Tympanitic Edema: No (No LE edema) Neurological: Yes: Alert Labs: CBC, BMP 03/22/20 06:37 03/22/20 06:37 INR, PTT INR 0.89 (0.83-1.09) 03/20/20 08:29 Problem List - Problems (1) Cholelithiasis Assessment/Plan: LFTs improved MRI without dilated CBD or CBD stone Monitor LFTs post op. Code(s): K80.20 - CALCULUS OF GALLBLADDER W/O CHOLECYSTITIS W/O OBSTRUCTION Qualifiers: Cholelithiasis location: gallbladder Cholecystitis presence: without cholecystitis Biliary obstruction: without biliary obstruction Qualified Code(s): K80.20 - Calculus of gallbladder without cholecystitis without obstruction
[2020-03-22] MEDS ORDERED: PROPOFOL 20 ML ONE (14:37)
[2020-03-22] MEDS ORDERED: ROCURONIUM BROMIDE 100 MG/10 ML VIAL ONE (14:38)
[2020-03-22] MEDS ORDERED: MIDAZOLAM HCL 2 MG/2 ML SINGLE DOSE VIAL ONE (14:38)
[2020-03-22] MEDS ORDERED: BUPIVACAINE HCL 50 ML ONE (14:42)
[2020-03-22] MEDS ORDERED: ceFAZolin SODIUM 1 GM VIAL IVPB ONE (15:27)
[2020-03-22] MEDS ORDERED: BUPIVACAINE HCL/PF 0.5% (5 MG/ML) 30 ML VIAL IJ ONE ×2 (15:41)
[2020-03-22] MEDS ORDERED: NEOSTIGMINE METHYLSULFATE 0.5 MG/ML - 10 ML MDV ONE (16:38)
--- NOTE | 2020-03-22 16:42 | OP ---
Operative Note - Note: Operative Date: 03/22/20 Pre-Operative Diagnosis: Acute cholecystitis/cholelithiasis Operation: Laparoscopic cholecystectomy Findings: as dictated Post-Operative Diagnosis: Same as Pre-op Surgeon: Maximilian Rivero [facility] Office Assistant: Hoawrd Yu Anesthesiologist/PEDIATRIC DENTAL ASSISTANT: Kym Lema Anesthesia: General, Local Specimens Removed: gallbladder/gallstones Estimated Blood Loss (mls): 5 (ml) Fluid Volume Replaced (mls): 1 (L LR) Operative Report Dictated: Yes
--- NOTE | 2020-03-22 16:43 | SURG ---
Surgery Hvac Lead Note Hvac Lead: Howard Yu PA-C (Suzy) Date of Service: 03/22/20 Diagnosis: Acute cholecystitis/cholelithiasis Procedure: Operation: Laparoscopic cholecystectomy I was present for the entirety of the operative procedure. For further detail, please refer to operative report. Visit type - Case Type Case Type: ED Admission - Emergency Emergency Visit: Yes ED Registration Date: 03/20/20 Care time: The patient presented to the Emergency Department on the above date and was hospitalized for further evaluation of their emergent condition. - New patient This patient is new to me today: Yes Date on this admission: 03/22/20 - Critical Care Critical Care patient: No
[2020-03-22] MEDS ORDERED: ACETAMINOPHEN 325 MG TABLET (FP) PO PRN (17:07)
[2020-03-22] MEDS ORDERED: oxyCODONE HCL 5 MG TABLET PO PRN ×3 (17:07→17:26)
[2020-03-22] MEDS ORDERED: ACETAMINOPHEN 1000 MG/100 ML VIAL (NON FORMULARY) IVPB ONE (17:28)
[2020-03-22] MEDS ORDERED: LACTATED RINGERS SOLUTION 1,000 ML IV SCH (17:30)
[2020-03-22] MEDS ORDERED: ACETAMINOPHEN INJECTION 100 ML IVPB ONE (17:49)
[2020-03-22] MEDS: ONDANSETRON 4 MG/2 ML VIAL IVPUSH PRN ×2 (17:55→18:49)
[2020-03-22] MEDS ORDERED: ONDANSETRON 4 MG/2 ML VIAL ONE (18:00)
[2020-03-22] MEDS: MORPHINE SULFATE 2 MG/ML VIAL IVPUSH PRN ×2 (19:30→23:54)
--- NOTE | 2020-03-22 20:01 | PN ---
Teaching Attending Note Name of Resident: Tom Metz ATTENDING PHYSICIAN STATEMENT I saw and evaluated the patient. I reviewed the resident's note and discussed the case with the resident. I agree with the resident's findings and plan as documented. SUBJECTIVE: Patient seen and examined at bedside, for lap tiffani today, LFTs trending down but c/o RUQ pain. VSS . OBJECTIVE: GENERAL: The patient is awake, alert, and fully oriented, in no acute distress. HEAD: Normal with no signs of trauma. EYES: PERRL, extraocular movements intact, sclera anicteric, conjunctiva clear. No ptosis. ENT: Ears normal, nares patent, oropharynx clear without exudates, moist mucous membranes. NECK: Trachea midline, full range of motion, supple. LUNGS: Breath sounds equal, clear to auscultation bilaterally, no wheezes, no crackles, no accessory muscle use. HEART: Regular rate and rhythm, S1, S2 without murmur, rub or gallop. ABDOMEN: Obese, Soft, RUQ tenderness to deep palpation, no guarding, BS+ EXTREMITIES: 2+ pulses, warm, well-perfused, no edema. NEUROLOGICAL: Cranial nerves II through XII grossly intact. Normal speech, gait not observed. PSYCH: Normal mood, normal affect. SKIN: Warm, dry, normal turgor, no rashes or lesions noted Vital Signs - 24 hr 03/21/20 03/21/20 03/22/20 20:40 22:00 02:00 Temperature 98.1 F 97.7 F Pulse Rate 57 L 64 Respiratory 18 18 18 Rate Blood Pressure 119/81 110/70 O2 Sat by Pulse 99 99 100 Oximetry (%) 03/22/20 03/22/20 03/22/20 06:00 09:00 10:00 Temperature 97.9 F 98.0 F Pulse Rate 56 L 59 L Respiratory 18 18 Rate Blood Pressure 102/70 118/62 O2 Sat by Pulse 99 99 99 Oximetry (%) 03/22/20 03/22/20 03/22/20 16:50 17:05 17:20 Temperature 97.8 F Pulse Rate 70 61 71 Respiratory 18 18 16 Rate Blood Pressure 112/78 111/71 112/67 O2 Sat by Pulse 100 100 100 Oximetry (%) 03/22/20 03/22/20 03/22/20 17:35 17:50 18:00 Temperature 98.3 F Pulse Rate 58 L 62 58 L Respiratory 16 16 16 Rate Blood Pressure 108/68 112/70 124/73 O2 Sat by Pulse 100 100 96 Oximetry (%) 03/22/20 03/22/20 03/22/20 18:05 18:25 19:15 Temperature 98.0 F 97.7 F Pulse Rate 56 L 56 L 64 Respiratory 14 16 16 Rate Blood Pressure 116/80 116/69 132/81 O2 Sat by Pulse 99 99 99 Oximetry (%) Laboratory Results - last 24 hr 03/20/20 03/22/20 03/22/20 02:30 06:37 06:37 WBC 3.6 L RBC 3.88 Hgb 10.5 L Hct 31.7 L MCV 81.8 MCH 27.0 MCHC 33.0 RDW 15.7 H Plt Count 244 MPV 8.3 Absolute Neuts (auto) 1.3 L Neutrophils % 35.8 L D Lymphocytes % 52.5 H D Monocytes % 7.6 Eosinophils % 3.4 Basophils % 0.7 Nucleated RBC % 0 Sodium 141 Potassium 4.4 Chloride 107 Carbon Dioxide 29 Anion Gap 5 L BUN 6.1 L Creatinine 0.7 Est GFR (CKD-EPI)AfAm 139.57 Est GFR (CKD-EPI)NonAf 120.42 Random Glucose 78 Calcium 8.7 Total Bilirubin 0.7 Direct Bilirubin 0.1 AST 80 H ALT 192 H Alkaline Phosphatase 151 H Total Protein 6.2 L Albumin 3.2 L COVID-19 (BERRY) Not detected Home Medications Medication Instructions Recorded NK [No Known Home Medication] 03/19/20 Current Medications Generic Name Dose Route Start Last Admin Trade Name Shalini PRN Reason Stop Dose Admin Acetaminophen 650 mg 03/22/20 17:07 Tylenol - PO Q4H PRN PAIN LEVEL 1 - 3 Fentanyl 50 mcg 03/22/20 17:26 03/22/20 17:50 Sublimaze Injection - IVPUSH 50 mcg Q5M PRN Administration PAIN-PACU ORDER X 4 DOSES ONLY Heparin Sodium (Porcine) 5,000 unit 03/23/20 14:00 Heparin - SQ TID MANULEA Lactated Ringer's 1,000 mls @ 125 mls/hr 03/22/20 17:07 03/22/20 18:48 Lactated Ringers Solution IV 125 mls/hr ASDIR MANUELA Administration Lactated Ringer's 1,000 mls @ 75 mls/hr 03/22/20 17:30 03/22/20 18:49 Lactated Ringers Solution IV Not Given ASDIR MANUELA Morphine Sulfate 1 mg 03/22/20 17:07 03/22/20 19:30 Morphine Sulfate IVPUSH 1 mg Q4H PRN Administration PAIN LEVEL 6-10 Oxycodone HCl 5 mg 03/22/20 17:07 Roxicodone - PO Q4H PRN PAIN LEVEL 1-5 Oxycodone HCl 10 mg 03/22/20 17:07 Roxicodone - PO Q4H PRN PAIN LEVEL 6-10 Oxycodone HCl 5 mg 03/22/20 17:26 Roxicodone - PO 03/23/20 17:25 Q4H PRN PAIN LEVEL 1-5 ASSESSMENT AND PLAN: 24 F r/o CBD stone Suspected cholecystitis for lap tiffani today Obesity Plan: Strict NPO for procedure Monitor LFTs MRCP unremarkable Will need lap tiffani and possible ERCP afterwards DVT ppx: Heparin SC
[2020-03-23] MEDS: MORPHINE SULFATE 2 MG/ML VIAL IVPUSH PRN (04:21)
[2020-03-23 07:33] LABS: BASO % 0.1 % (0-2.0); EOS % 0.1 % (0-4.5); HEMATOCRIT 31.5 % (32.4-45.2); HEMOGLOBIN 10.7 GM/dL (10.7-15.3); LYMPH % 24.3 % (8-40); MCH 27.6 pg (25.7-33.7); MCHC 33.9 g/dl (32.0-36.0); MEAN CELL VOLUME 81.4 fl (80-96); MEAN PLT VOLUME 8.1 fl (7.5-11.1); MONO % 4.7 % (3.8-10.2); NEUT % 70.8 % (42.8-82.8); PLATELET COUNT 295 K/MM3 (134-434); RBC 3.87 M/mm3 (3.60-5.2); RDW 15.5 % (11.6-15.6); WHITE BLOOD COUNT 6.2 K/mm3 (4.0-10.0)
[2020-03-23 07:44] LABS: ALBUMIN 3.2 g/dl (3.4-5.0); BILIRUBIN,DIRECT 0.1 mg/dL (0.0-0.2); BILIRUBIN,TOTAL 0.7 mg/dL (0.2-1); BLOOD UREA NITROGEN 5.4 mg/dL (7-18); CREATININE 0.7 mg/dL (0.55-1.3); MAGNESIUM 1.9 mg/dL (1.8-2.4); PHOSPHOROUS 4.5 mg/dL (2.5-4.9); POTASSIUM 4.2 mmol/L (3.5-5.1); TOT PROT 6.3 g/dl (6.4-8.2)
--- NOTE | 2020-03-23 10:40 | PN ---
Progress Note (short form) - Note Progress Note: Surgery POD #1 laparoscopic cholecysectomy patient seen and examined at bedside with no complaints. Her pain is controlled and she is tolerating her diet, has been OOB and voiding. She denies any CP, SOB, N/V, fever or chills. Vital Signs Temp 98.0 F 03/23/20 06:00 Pulse 68 03/23/20 06:00 Resp 18 03/23/20 06:00 BP 107/67 03/23/20 06:00 Pulse Ox 100 03/23/20 06:00 Intake & Output 03/22/20 03/22/20 03/23/20 11:59 23:59 11:59 Intake Total 1675 2840 2055 Output Total 5 Balance 1675 2835 2055 Intake: IV 1675 2600 1375 Lactated Ringers Solution 1675 1,000 ml @ 125 mls/hr IV ASDIR MANUELA Rx#: [id number] Lactated Ringers Solution 500 1375 1,000 ml @ 125 mls/hr IV ASDIR MANUELA Rx#: [id number] Lactated Ringers Solution 600 1,000 ml @ 75 mls/hr IV ASDIR MANUELA Rx#:[id number] Oral 0 240 680 Output: Urine 0 Estimated Blood Loss 5 Other: Voiding Method Toilet Toilet Toilet # Unmeasured Voids Void 1 2 3 Bowel Movement No No Yes CBC, BMP 03/23/20 06:20 03/23/20 06:20 PE: A&Ox3, NAD Unlabored resp on RA ABD: obese, soft, ND, with mild ttp at port sites. incisions c/d/i with surrounding tissue intact and no tracking erythema or active d/c B/L LE compartments soft, supple and non-tender with +2 DP pulses. Problem List - Problems (1) Cholelithiasis Assessment/Plan: POD #1 lap tiffani, doing well 1) Continue regular diet 2) OOB as tolerated 3) Encourage IS 4) D/c planning for home Cleared from surgical perspective for d/c Evaluation and plan discussed with Dr Rivero Code(s): K80.20 - CALCULUS OF GALLBLADDER W/O CHOLECYSTITIS W/O OBSTRUCTION Qualifiers: Cholelithiasis location: gallbladder Cholecystitis presence: without cholecystitis Biliary obstruction: without biliary obstruction Qualified Code(s): K80.20 - Calculus of gallbladder without cholecystitis without obstruction
--- NOTE | 2020-03-23 13:44 | PN ---
Progress Note (short form) - Note Progress Note: S/P Lap Jayna 03/22: LFTs continue to improve Ordered repeat for AM Problem List - Problems (1) Cholelithiasis Code(s): K80.20 - CALCULUS OF GALLBLADDER W/O CHOLECYSTITIS W/O OBSTRUCTION Qualifiers: Cholelithiasis location: gallbladder Cholecystitis presence: without cholecystitis Biliary obstruction: without biliary obstruction Qualified Code(s): K80.20 - Calculus of gallbladder without cholecystitis without obstruction
[2020-03-23] MEDS ORDERED: HEPARIN NA (PORCINE) 5,000 UNITS/ML 1ML VIAL SQ SCH (14:00)
[2020-03-23 14:20] VITALS: TEMP 98.3
[2020-03-23 14:31] VITALS: BP 114/75; PULSE 92
--- NOTE | 2020-03-23 14:31 | PN ---
Teaching Attending Note Name of Resident: Tom Metz ATTENDING PHYSICIAN STATEMENT I saw and evaluated the patient. I reviewed the resident's note and discussed the case with the resident. I agree with the resident's findings and plan as documented. SUBJECTIVE: pt seen and examined at bedside OBJECTIVE: Last Vital Signs Temp Pulse Resp BP Pulse Ox 98.3 F 89 18 122/83 99 03/23/20 10:00 03/23/20 10:00 03/23/20 10:00 03/23/20 10:00 03/23/20 10:00 GENERAL: Awake, alert, and fully oriented, in no acute distress. HEAD: Normal with no signs of trauma. EYES: Pupils equal, round and reactive to light, sclera anicteric, conjunctiva clear. LUNGS: Breath sounds equal, clear to auscultation bilaterally. No wheezes, and no crackles. No accessory muscle use. HEART: Regular rate and rhythm, normal S1 and S2 ABDOMEN: Soft, nontender, not distended MUSCULOSKELETAL: Normal range of motion at all joints. No bony deformities or tenderness. No CVA tenderness. UPPER EXTREMITIES: 2+ pulses, warm, well-perfused. No cyanosis. No clubbing. No peripheral edema. LOWER EXTREMITIES: 2+ pulses, warm, well-perfused. No calf tenderness. No peripheral edema. NEUROLOGICAL: Cranial nerves II-XII intact. Normal speech. CBCD WBC 6.2 K/mm3 (4.0-10.0) 03/23/20 06:20 RBC 3.87 M/mm3 (3.60-5.2) 03/23/20 06:20 Hgb 10.7 GM/dL (10.7-15.3) 03/23/20 06:20 Hct 31.5 % (32.4-45.2) L 03/23/20 06:20 MCV 81.4 fl (80-96) 03/23/20 06:20 MCHC 33.9 g/dl (32.0-36.0) 03/23/20 06:20 RDW 15.5 % (11.6-15.6) 03/23/20 06:20 Plt Count 295 K/MM3 (134-434) D 03/23/20 06:20 MPV 8.1 fl (7.5-11.1) 03/23/20 06:20 CMP Sodium 138 mmol/L (136-145) 03/23/20 06:20 Potassium 4.2 mmol/L (3.5-5.1) 03/23/20 06:20 Chloride 104 mmol/L (98-107) 03/23/20 06:20 Carbon Dioxide 25 mmol/L (21-32) 03/23/20 06:20 Anion Gap 9 MMOL/L (8-16) 03/23/20 06:20 BUN 5.4 mg/dL (7-18) L 03/23/20 06:20 Creatinine 0.7 mg/dL (0.55-1.3) 03/23/20 06:20 Calcium 9.0 mg/dL (8.5-10.1) 03/23/20 06:20 Total Bilirubin 0.7 mg/dL (0.2-1) 03/23/20 06:20 AST 41 U/L (15-37) H 03/23/20 06:20 ALT 140 U/L (13-61) H 03/23/20 06:20 Alkaline Phosphatase 140 U/L (45-117) H 03/23/20 06:20 Total Protein 6.3 g/dl (6.4-8.2) L 03/23/20 06:20 Albumin 3.2 g/dl (3.4-5.0) L 03/23/20 06:20 ASSESSMENT AND PLAN: 24yo F with no significant PMHx who presented with nausea and sever midepigastric and R epigastric pain and admitted cholelithiasis. # cholecystitis s/p lap tiffani today -POD1 -tolerating diet, had flatus -LFT trending down -no fever no leukocytosis -MRCP unremarkable -cleared by surgery Obesity DVT ppx: Heparin SC
--- NOTE | 2020-03-24 14:25 | PATH ---
Surgical Pathology Report Patient Name: PIPE TRIMBLE Med. Rec. #: [id number] /Age/Gender: 1995 (Age: 24) / F Account: [id number] Location: [facility] MED/SURG Taken: 03/22/2020 Received: 03/23/2020 Reported: 03/24/2020 Physicians: Maximilian Rivero MD Specimen(s) Received GALLBLADDER Clinical History Symptomatic cholelithiasis Final Diagnosis GALLBLADDER, LAPAROSCOPIC CHOLECYSTECTOMY: CHRONIC CHOLECYSTITIS WITH CHOLELITHIASIS. Electronically Signed Kelly Shaikh M.D. Gross Description Received in formalin, labeled "gallbladder," is a 7.0 x 2.3 x 1.7 cm. gallbladder with a 0.2 cm. in length portion of cystic duct attached. The outer surface is whelan-benoit and varies from smooth to shaggy. The lumen contains green, tenacious bile as well as multiple yellow cholelith ranging from 0.2-0.4 cm in greatest dimension. The mucosa is dark green and velvety. The wall of the gallbladder averages 0.2 cm. in thickness. Academic Services Coordinator sections are submitted in one cassette. 03/23/2020 [facility]03/23/2020
--- NOTE | 2020-03-26 11:37 | OP ---
DATE OF OPERATION: 03/22/2020 PREOPERATIVE DIAGNOSES: Acute cholecystitis and cholelithiasis. POSTOPERATIVE DIAGNOSES: Acute cholecystitis and cholelithiasis. PROCEDURE: Laparoscopic cholecystectomy. SURGEON: Maximilian Rivero MD BUSINESS DEPARTMENT CHAIR: Howard Yu PA-C ANESTHESIA: General. OPERATIVE FINDINGS: Acute cholecystitis and cholelithiasis. The rest of the findings were unremarkable. DESCRIPTION OF PROCEDURE: The patient was placed on the operating room table in supine position. After the induction of general anesthesia, the patient's abdomen was prepped with ChloraPrep and draped in sterile fashion. Timeout was taken and then pneumoperitoneum established above the umbilicus using a Veress needle. Once 15 mm of intraabdominal pressure was obtained, a 5-mm port was placed at the umbilicus. Additional lateral 5-mm ports and a subxiphoid 12-mm port were placed and laparoscopy carried out, and the previously noted findings were observed. The gallbladder was placed on cephalad and lateral traction, and dissection was begun at the neck of the gallbladder where the peritoneum was opened medially and laterally using blunt and sharp dissection and electrocautery. Dissection continued in the triangle of Calot where the cystic duct was identified coursing from the neck of the gallbladder distally to the common bile duct. It was dissected proximally and distally for length. Similarly, the artery was similarly identified and dissected. A critical view of safety was taken, and then the cystic duct divided proximally and distally using Endo Christine after it was clipped twice proximally and distally with large hemoclips. The artery was similarly clipped and divided. Hemostasis was checked for and noted to be good and then the gallbladder was removed from the liver bed in a retrograde fashion using electrocautery. Prior to removal from the edge of the liver, hemostasis was again verified and then the gallbladder removed from the edge of the liver, placed in an EndoCatch, and brought out through the subxiphoid port. Pneumoperitoneum was reestablished, hemostasis verified again, and then the 5-mm lateral and subxiphoid ports were removed under laparoscopic vision without evidence of bleeding from the port sites. The umbilical port was removed and the pneumoperitoneum evacuated. All port sites were infiltrated with 0.5% Marcaine and the skin edges closed with 4-0 Biosyn in a subcuticular and continuous fashion. Steri-Strips and Band-Aid dressings were placed and the procedure terminated at this point and the patient aroused from general anesthesia and transferred to the postanesthesia care unit in stable condition awake and alert. ESTIMATED BLOOD LOSS: 5 mL. REPLACEMENT: Crystalloid. DRAINS: None. SPECIMENS: Gallbladder and contents to Pathology. I, Maximilian Rivero, was physically present in the operating room from the time the patient was placed on the operating room table until she was transferred to the postanesthesia care unit in my accompaniment. MD DARCIE Aguero/[id number] MTDD
== END 2020-03-23 16:00 | disposition home or self-care (01) | DRG 263 ==
LOC: JER 23:38 → JERBED 03-20 02:38 → J7W 03-20 04:49
PROVIDERS: ADMIT Internal Medicine; ATTEND Student in an Organized Health Care Education/Training Program
PROC: 0FT44ZZ Resection of Gallbladder, Percutaneous Endoscopic Approach (ICD-10-PCS; principal; 2020-03-22 15:00)
DX: K80.12 Calculus of gallbladder with acute and chronic cholecystitis without obstruction (principal); Z68.35 Body mass index [BMI] 35.0-35.9, adult; R10.13 Epigastric pain; E66.9 Obesity, unspecified
CPT/HCPCS: 36415; 71045-TC-FY; 74181-TC; 76705-TC; 80053; 80074; 80076; 81003; 83690; 83735; 84100; 84703; 85025; 85610; 88304-TC; 93005; 93010; 94010; 94760; 99285-25; J0131; J1644; U0003